=== PATIENT | female | born 1950 | race Two or more races ===

== ENCOUNTER 2025-04-12 15:08 | Emergency (ER) | payer MEDICARE, OTHER ==
[~2025-04-12] VITALS: Ht 157.5 cm; Wt 103.0 kg
--- NOTE | 2025-04-12 16:22 | ED.PDOC ---
History of Present Illness(SKN HPI Comments 74 year old female presents to the ED with a chief complaint of wound check. Patient states she was sent by PCP to ED to r/o infection. Patient has RT knee replacement on 02/18/25, was being treated at rehabilitation center, noticed wound was not healing properly. Patient has wound care nurse home visit 3 times a week, dressing was changed this morning. For the past few days, patient states she noticed wound is worsening, has a foul odor, she was placed on antibiotics on 04/05/25 with no improvement. Denies fever, chills, nausea, vomiting, diarrhea, headache, dizziness, chest pain, shortness of breath. No other symptoms or modifying factors present at this time. Chief Complaint: Wound Check Time Seen by MD: 16:10 History of Present Illness: Medications, Allergies Allergies: Coded Allergies: NO KNOWN ALLERGIES (Unverified , 04/12/25) Information Source: Patient Mode of Arrival: Ambulatory Severity: Moderate Timing: Weeks Duration: Since onset Prehospital treatment: Other (antibiotics) Location: Other (Rt knee) Mechanism: Preceding Wound Object: None Condition of Object: None Wound Type: Other Tetanus: UTD Associated Signs and Symptoms: Redness Past Medical History PAST MEDICAL HISTORY: Denies Surgical History (Other): RT knee replacement 02/18/25 CAR WASHER History: No Pertinent CAR WASHER History Family History Family History: Reviewed,noncontributory to illness, No family hx of Cancer, No family hx of DM, No family hx of Heart ollie, No family hx of HTN, No family hx ofKidney ollie, No family hx of Liver ollie, No family hx of Lung ollie, No family hx of Stroke Social History Smoker: Non-Smoker Alcohol: Denies ETOH Use Drugs: Denies Drug Use Lives In: Home Constitutional: denies: chills, diaphoresis, fatigue, fever, malaise, sweats, weakness, others EENTM: denies: blurred vision, double vision, ear bleeding, ear discharge, ear drainage, ear pain, ear ringing, eye pain, eye redness, hearing loss, mouth pain, mouth swelling, nasal discharge, nose bleeding, nose congestion, nose pain, photophobia, tearing, throat pain, throat swelling, voice changes, others Respiratory: denies: cough, hemoptysis, orthopnea, SOB at rest, shortness of breath, SOB with excertion, stridor, wheezing, others Cardiovascular: denies: chest pain, dizzy spells, diaphoresis, Dyspnea on exertion, edema, irregular heart beat, left arm pain, lightheadedness, palpitations, PND, syncope, others Gastrointestinal: denies: abdomen distended, abdominal pain, blood streaked bowels, constipated, diarrhea, dysphagia, difficulty swallowing, hematemesis, melena, nausea, poor appetite, poor fluid intake, rectal bleeding, rectal pain, vomiting, others Genitourinary: denies: abnormal vagina bleeding, burning, dyspareunia, dysuria, flank pain, frequency, hematuria, incontinence, pain, , vagina discharge, urgency, others Neurological: denies: dizziness, fainting, headache, left sided numbness, left sided weakness, numbness, paresthesia, pre-existing deficit, right sided numbness, right sided weakness, seizure, speech problems, tingling, tremors, weakness, others Musculoskeletal: reports: others (RT knee wound, pain); denies: back pain, gout, joint pain, joint swelling, muscle pain, muscle stiffness, neck pain Integumetry: reports: wounds (RT knee); denies: bruises, change in color, change in hair/nails, dryness, laceration, lesions, lumps, rash, others Allergic/Immunocompromised: denies: Difficulty Healing, Frequent Infections, Hives, Itching, others Hematologic/Lymphatic: denies: anemia, blood clots, easy bleeding, easy bruising, swollen glands, others Endocrine: denies: excessive hunger, excessive sweating, excessive thirst, excessive urination, flushing, intolerance to cold, intolerance to heat, unexplained weight gain, unexplained weight loss, others Psychiatric: denies: anxiety, bipolar disorder, depression, hopeless, panic disorder, schizophrenia, sleepless, suicidal, others All Other Systems: Reviewed and Negative Physical Exam General Appearance: Normal HEENT: Normal ENT Inspection, Pharynx Normal, TMs Normal Neck: Full Range of Motion, Non-Tender, Normal, Normal Inspection Respiratory: Chest Non-Tender, Lungs Clear, No Accessory Muscle Use, No Respiratory Distress, Normal Breath Sounds Cardiovascular: No Edema, No JVD, No Murmur, No Gallop, Normal Peripheral Pulses, Regular Rate/Rhythm Breast Exam: Deferred Gastrointestinal: No Organomegaly, Non Tender, No Pulsatile Mass, Normal Bowel Sounds, Soft Genitalia: Deferred Pelvic: Deferred Rectal: Deferred Extremities: No calf tenderness, Normal capillary refill, No pedal edema Musculoskeletal : Location: Right Extremity Location: Knee (2 cm non-healing wound) Apperance: Normal Neurologic: Alert, leather grader II-XII nml as Tested, No Motor Deficits, Normal Affect, Normal Mood, No Sensory Deficits Cerebellar Function: Normal Reflexes: Normal Skin: Dry, Wounds (RT knee, 2cm non-healing wound) Lymphatic: No Adenopathy Was a procedure done? Was a procedure done?: No Differential Diagnosis (INTG) Differential Diagnosis: Cellulitis, Puncture Wound Differential Diagnosis: Abscess Differential Diagnosis: Osteomyelitis X-Ray, Labs, Meds, VS Vital Signs Date Time Temp Pulse Resp B/P (MAP) Pulse Ox O2 Delivery O2 Flow Rate FiO2 04/12/25 16:18 Room Air* 0 21 04/12/25 15:12 98.1 110 16 135/84 100 98.1 Lab Test 04/12/25 18:22 04/12/25 17:18 Range/Units Urine Color Pending Urine Clarity Pending Urine pH Pending Urine Specific [place] Pending Urine Protein Pending Urine Ketones Pending Urine Blood Pending Urine Nitrite Pending Urine Bilirubin Pending Urine Urobilinogen Pending Urine Leukocyte Esterase Pending Urine RBC Pending Urine Microscopic WBC Pending Urine Squamous Epithelial Cells Pending Urine Bacteria Pending Urine Glucose Pending White Blood Count 10.5 4.4-10.8 10^3/uL Red Blood Count 4.55 4.0-5.20 10^6/uL Hemoglobin 12.8 12.2-16.2 g/dL Hematocrit 39.0 36.0-46.0 % Mean Corpuscular Volume 85.6 80.0-100.0 fL Mean Corpuscular Hemoglobin 28.1 28.0-32.0 pg Mean Corpuscular Hemoglobin Concent 32.9 32.0-36.0 g/dL Red Cell Distribution Width 15.2 H 11.8-14.3 % Platelet Count 272 140-450 10^3/uL Mean Platelet Volume 9.3 6.9-10.8 fL Neutrophils (%) (Auto) 64.2 37.0-80.0 % Lymphocytes (%) (Auto) 23.1 10.0-50.0 % Monocytes (%) (Auto) 9.8 0.0-12.0 % Eosinophils (%) (Auto) 2.0 0.0-7.0 % Basophils (%) (Auto) 0.9 0.0-2.0 % Neutrophils # (Auto) 6.8 1.6-8.6 10 ^3/uL Lymphocytes # (Auto) 2.4 0.4-5.4 10 ^3/uL Monocytes # (Auto) 1.0 0-1.3 10 ^3/uL Eosinophils # (Auto) 0.2 0-0.8 10 ^3/uL Basophils # (Auto) 0.1 0-0.2 10 ^3/uL Nucleated Red Blood Cells 0.0 % Sodium Level 146 H 136-145 mmol/L Potassium Level 4.6 3.5-5.1 mmol/L Chloride Level 106 98-107 mmol/L Carbon Dioxide Level 29 20-31 mmol/L Anion Gap 11 5-15 Blood Urea Nitrogen 27 H 9-23 mg/dL Creatinine 1.29 H 0.550-1.02 mg/dL Glomerular Filtration Rate Calc 43 >90 mL/min BUN/Creatinine Ratio 20.9 H 10.0-20.0 Serum Glucose 97 74-106 mg/dL Lactic Acid Level 1.3 0.4-2.0 mmol/L Calcium Level 9.8 8.7-10.4 mg/dL Total Bilirubin 0.5 0.2-1.0 mg/dL Aspartate Amino Transferase (AST) 18 13-40 U/L Alanine Aminotransferase (ALT) < 9 7-40 U/L Alkaline Phosphatase 116 46-116 U/L Total Protein 7.6 5.7-8.2 g/dL Albumin 4.5 3.2-4.8 g/dL Current Medications Medications (Trade) Dose Ordered Sig/Eber Route Start Time Stop Time Status Last Admin Cefazolin Sodium 50 ml @ 100 mls/hr ONCE ONCE IV 04/12/25 16:30 04/12/25 16:59 DC 04/12/25 16:[address] [address] Ph: [phone] DIAGNOSTIC IMAGING Diagnostic Imaging Report : [id number] Signed PATIENT: RONY ASCENCIO AACCT: [id number] UNIT: [id number] : 1950 LOC: ER ROOM / BED: / AGE / SEX: 74 / F ADM STATUS: REG ER SERVICE [id number] ORDERING PHYSICIAN: PATRICK YOO PROCEDURE(s): RKNCT - CT R KNEE WO CONTRAST REASON: wound ORDER NUMBER(s): [id number], ACCESSION NUMBER(s): [id number] EXAM: CT CT R KNEE WO CONTRAST INDICATION: wound TECHNIQUE: Axial images of right knee without contrast have been obtained along with coronal and sagittal reformatted images. All CT scans at this facility use dose modulation, iterative reconstruction, and/or weight based dosing when appropriate to reduce radiation dose to as low as reasonably achievable. COMPARISON: None FINDINGS: BONES: No CT evidence of an acute fracture or aggressive osseous lesion. Right knee arthroplasty. No osseous lucency along the hardware bone interfaces. No perihardware fracture. MUSCLES: No abnormal attenuation. JOINT SPACES: Small knee joint effusion with internal density. TENDONS/LIGAMENTS: Intact. OTHER: Significant deep soft tissue ulceration of the anterior aspect of the upper knee to distal thigh overlying the quadriceps tendon. IMPRESSION: 1. No definitive CT evidence of osteomyelitis without evidence of osseous erosion or abnormal sclerosis. 2. Small right knee joint effusion and underlying septic arthritis not excluded. 3. Deep soft tissue ulceration along the anterior aspect of the distal thigh to upper knee overlying the quadriceps tendon. ATED BY: MOY BENTON MD DICTATED DATE/TIME: 04/12/251723 SIGNED BY: MOY BENTON MD SIGNED DATE/TIME: 04/12/251723 CC: X-Ray, Labs, Meds, VS Comment CT report shows no obvious signs of osteomyelitis, lab work shows no significant signs for infection Patient will be started on clindamycin 3 times a day times 10 days Advised to follow up with PCP/the surgeon for application of wound VAC Advised to follow up in 24-48 hours if symptoms worsen. Time of 1ST Reevaluation: 16:40 Reevaluation 1ST: Unchanged Patient Education/Counseling: Diagnosis, Treatment, Prognosis, Need For Follow Up (Follow up in 2-4 days if symptoms worsen. Call PCP in tomorrow for further evaluation) Family Education/Counseling: No Family Present SEPSIS Sepsis Screen Date sepsis recognized/suspect: Apr 12, 2025 Time Sepsis recognized/suspect: 1514 Recent Procedure: Yes On Antibiotic Therapy: Yes Respiratory Rate >20: No Heart Rate >90: Yes Temp<36 C (96.8 F) or >38.3 C: No SBP <90 or MAP <65 mmHG: No New Acute Mental Status Change: No Is the patient on CPAP, BIPAP,: No Physician Orders Ct R Knee Wo Contrast (04/12/25 16:19) Urinalysis (04/12/25 16:19) Vital Signs Date Time Temp Pulse Resp B/P (MAP) Pulse Ox O2 Delivery O2 Flow Rate FiO2 04/12/25 16:18 Room Air* 0 21 04/12/25 15:12 98.1 110 16 135/84 100 98.1 Laboratory Tests Test 04/12/25 17:18 Lactic Acid Level 1.3 mmol/L (0.4-2.0) White Blood Count 10.5 10^3/uL (4.4-10.8) Medications Medications Dose Ordered Sig/Eber Route Start Time Stop Time Status Last Admin Dose Admin Cefazolin Sodium 50 ml @ 100 mls/hr ONCE ONCE IV 04/12/25 16:30 04/12/25 16:59 DC 04/12/25 16:28 Departure 1 Departure Time of Disposition: 19:27 Impression: Primary Impression: Surgical wound dehiscence Qualified Codes: T81.31XA - Disruption of external operation (surgical) wound, not elsewhere classified, initial encounter Disposition: HOME / SELF CARE / HOMELESS Condition: Stable e-Prescriptions Clindamycin Hcl (Clindamycin Hcl) 300 Mg Cap 1 CAP PO TID, #30 CAP Prov: PATRICK YOO 04/12/25 Discharged With: Self Critical Care Note Critical Care Time?: No Stability Stability form required: No Heart Score Heart Score: Heart Score Response (Comments) Value History N/A 0 EKG N/A 0 Age N/A 0 Risk Factors N/A 0 Troponin N/A 0 Total 0 I personally scribed for PATRICK YOO CERTIFIED TOWER CLIMBER ([email or web address]) on 04/12/25 at 16:22. Electronically submitted by Carla Hale ([email or web address]). I personally scribed for PATRICK YOO CERTIFIED TOWER CLIMBER ([facility]) on 04/12/25 at 17:45. Electronically submitted by Carla Hale ([email or web address]). PATRICK YOOP Apr 12, 2025 16:22
[2025-04-12] MEDS: ceFAZolin 1GM/50ML 50 ML IV ONE (16:28)
--- NOTE | 2025-04-12 17:27 | DVH ---
EXAM: CT CT R KNEE WO CONTRAST INDICATION: wound TECHNIQUE: Axial images of right knee without contrast have been obtained along with coronal and sagi ttal reformatted images. All CT scans at this facility use dose modulation, iterative reconstruction, and/or weight based dosing when appropriate to reduce radiation dose to as low as reasonably achieva ble. COMPARISON: None FINDINGS: BONES: No CT evidence of an acute fracture or aggressive osseous lesion. Right knee arthroplasty. No osseous lucency along the hardware bone interfaces. No perihardware fracture. MUSCLES: No abnormal attenuation. JOINT SPACES: Small knee joint effusion with internal density. TENDONS/LIGAMENTS: Intact. OTHER: Significant deep soft tissue ulceration of the anterior aspect of the upper knee to distal thi gh overlying the quadriceps tendon. IMPRESSION: 1. No definitive CT evidence of osteomyelitis without evidence of osseous erosion or abnormal scleros is. 2. Small right knee joint effusion and underlying septic arthritis not excluded. 3. Deep soft tissue ulceration along the anterior aspect of the distal thigh to upper knee overlying the quadriceps tendon.
[2025-04-12 18:37] LABS: Hematocrit 39.0 % (36.0-46.0); Hemoglobin 12.8 g/dL (12.2-16.2); Mean Corpuscular Hemoglobin 28.1 pg (28.0-32.0); Mean Corpuscular Volume 85.6 fL (80.0-100.0); Nucleated Red Blood Cells % 0.0 %
[2025-04-12 18:52] LABS: Albumin 4.5 g/dL (3.2-4.8); Alkaline Phosphatase 116 U/L (46-116); Anion Gap 11 (5-15); BUN/Creatinine Ratio 20.9 (10.0-20.0); Bilirubin, Total 0.5 mg/dL (0.2-1.0); Calcium 9.8 mg/dL (8.7-10.4); Carbon Dioxide 29 mmol/L (20-31); Chloride 106 mmol/L (98-107); Glucose 97 mg/dL (74-106); Potassium 4.6 mmol/L (3.5-5.1); Total Protein 7.6 g/dL (5.7-8.2)
[2025-04-12 19:06] LABS: Alanine Aminotransferase < 9 U/L (7-40); Blood Urea Nitrogen 27 mg/dL (9-23); Sodium 146 mmol/L (136-145)
[2025-04-12] MEDS ORDERED: CLIN1CAP70 PO (19:28)
[2025-04-12 19:29] LABS: Urine Protein, UAD Negative (Negative)
[2025-04-12 19:56] VITALS: BP 153/82; PULSE 85; RESP 16; TEMP 98.6; O2SAT 98
== END 2025-04-12 19:58 | disposition home or self-care (01) ==
LOC: ER 15:12
DX: T81.31XA Disruption of external operation (surgical) wound, not elsewhere classified, initial encounter (principal); Z96.651 Presence of right artificial knee joint; Z88.1 Allergy status to other antibiotic agents; Y92.89 Other specified places as the place of occurrence of the external cause
CPT/HCPCS: 36415; 73700; 80053; 81001; 83605; 85025; 96365; 99285; J0690